=== PATIENT | female | born 1985 | race Caucasian/White ===

== ENCOUNTER 2020-02-18 15:51 | Emergency (ER) | payer BC, MEDICAID ==
[~2020-02-18] VITALS: Ht 167.6 cm; Wt 136.4 kg
[~2020-02-18 15:51] MED LIST: PREN1TAB52 PO
[2020-02-18 15:58] VITALS: BP 125/80
[2020-02-18] MEDS ORDERED: HYDROCODONE/ACETAMINOPHEN 5-325 MG TABLET PO ONE (17:00)
== END 2020-02-18 18:46 | disposition home or self-care (01) ==
LOC: EMS 15:51
DX: S93.492A Sprain of other ligament of left ankle, initial encounter (principal); J45.909 Unspecified asthma, uncomplicated; X50.1XXA Overexertion from prolonged static or awkward postures, initial encounter; Y93.89 Activity, other specified; Y92.89 Other specified places as the place of occurrence of the external cause; Y99.8 Other external cause status